=== PATIENT | male | born 1975 | race Two or more races ===

== ENCOUNTER 2016-09-06 13:18 | Emergency (ER) | payer MEDICAID, OTHER ==
[2016-09-06 13:27] VITALS: BP 113/84; PULSE 80; RESP 16; TEMP 97.5; O2SAT 96
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
== END 2016-09-06 14:59 | disposition home or self-care (01) ==
LOC: CED 13:18
DX: M54.5 Low back pain (principal); G89.29 Other chronic pain; F17.200 Nicotine dependence, unspecified, uncomplicated

== ENCOUNTER 2016-11-20 18:37 | Emergency (ER) | payer MEDICAID ==
[2016-11-20 19:01] VITALS: TEMP 98.1; O2SAT 97
[2016-11-20] MEDS ORDERED: KETOROLAC 30 MG/1 ML SDV IM ONE (19:30)
--- NOTE | 2016-11-20 19:35 | EDPHY ---
H & P Time Seen by Provider: 11/20/16 19:13 HPI/ROS: HPI Back pain. 41-year-old male by private vehicle. He has a history of chronic back pain. He states that he woke up this morning with right-sided lower paraspinal back pain. He denies any fall, injury or other source of trauma. He reports this is the same back pain he has had for years. He was last seen in our emergency department for this same complaint in mid August. He has a history of narcotic abuse. The patient denies any bowel or bladder incontinence. No fever. No abdominal pain. No loss of sensation or weakness in his extremities. He denies IV drug use. He has no other complaints. He is asking for a work excuse ROS: Constitutional: No fever, no chills. No weakness. Gastrointestinal: No abdominal pain, no vomiting, no diarrhea. Genitourinary: No hematuria. No dysuria or increased frequency with urination. Musculoskeletal: As above. No neck pain. No myalgias or arthralgias. Skin: No rashes. Neurological: No headache. No focal weakness or altered sensation. Past medical history: Back pain since 2014. Opiate abuse. Social history: Smoker. As above. Here by himself. Physical Exam: General Appearance: Alert, no distress. This patient is responding to questions appropriately and in full sentences. This patient appears well- hydrated and well-nourished. Eyes: Pupils equal and round no pallor or injection. No lid edema, erythema or injection. Back exam: No midline thoracic, lumbar, sacral tenderness on palpation. He does have some tenderness on palpation which is mild at the level of L1 paraspinal worse on the right versus the left. He has a negative same side and cross-eyed straight leg raise test. No soft tissue changes on examination of his back. No erythema, no warmth, no ecchymosis, no edema. He is neurologically intact in all myotomes in dermatomes of the bilateral lower extremities. Gastrointestinal: Abdomen is soft and nontender, no masses, bowel sounds normal. No focal tenderness at McBurney's point. No Willson sign. Neurological: Motor sensory function is grossly intact. Cranial nerves are normal. Gait is normal. Skin: Warm and dry, no rashes. Musculoskeletal: Neck is supple and nontender. Extremities are symmetrical. All joints range without pain or impingement. Psychiatric: No agitation. No depression. Database: EKG: Imaging: Procedures: Emergency department course: I explained to him my concern about his former opiate abuse. He has no contraindications to NSAIDs. No history of renal dysfunction or peptic ulcer disease. He was given 60 mg of IM Toradol in the emergency department. He had relief with this medication. I will have him follow up with his primary care physician for re-evaluation in a few days. Return to emergency department precautions were reviewed with him. He feels comfortable going home. He understands his follow-up. All of his questions were answered. He was discharged in good condition. Differential Diagnosis: The differential diagnosis on this patient includes but is not limited to lumbar strain. Epidural abscess, epidural compression syndrome, acute radiculopathy, fracture, subluxation, dislocation, AAA unlikely. This represents a partial list of diagnoses considered. These considerations are based on history, physical exam, past history, reassessment and diagnostic testing. Smoking Status: Current every day smoker Constitutional: Initial Vital Signs Temperature (C) 36.7 C 11/20/16 18:58 Heart Rate 89 11/20/16 18:58 Respiratory Rate 18 11/20/16 18:58 Blood Pressure 128/88 H 11/20/16 18:58 O2 Sat (%) 97 11/20/16 18:58 O2 Delivery Mode Room Air Allergies/Adverse Reactions: No Known Allergies Allergy (Verified 11/20/16 18:57) Home Medications: Medication Instructions Recorded Gabapentin 09/06/16 Ibuprofen [Motrin (*)] 600 mg PO Q6 PRN #30 tab 09/06/16 Methocarbamol [Robaxin 750 mg (*)] 750 - 1,500 mg PO QID PRN #30 tab 09/06/16 buPROPion 11/20/16 Departure - Departure Disposition: Home, Routine, Self-Care Clinical Impression: Lower back pain Condition: Good Instructions: Low Back Strain (ED), Back Pain (ED) Additional Instructions: Read and follow provided instructions. Follow-up with your primary care physician in 2-3 days for re-evaluation as discussed. Return to the emergency department for worsening pain, fever, bowel or bladder incontinence, loss of sensation or weakness in your lower extremities or other serious concerns. Referrals: [facility],. [Clinic] - As per Instructions Stand Alone Forms: Work Excuse
[2016-11-20 19:39] VITALS: BP 120/77; PULSE 85; RESP 16
== END 2016-11-20 19:40 | disposition home or self-care (01) ==
LOC: CED 18:37
DX: M54.5 Low back pain (principal); F17.200 Nicotine dependence, unspecified, uncomplicated
CPT/HCPCS: J1885